=== PATIENT | female | born 2000 | race Caucasian/White ===

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

== ENCOUNTER 2019-05-27 06:25 | Day surgery (SDC) | payer OTHER ==
[~2019-05-27] VITALS: Ht 167.6 cm; Wt 63.0 kg
[~2019-05-27 06:25] MED LIST: CYCL5TAB PO; KETO10TAB PO; LIDOCAINE 1% MDV 20ML VIAL SQ PRN
[2019-05-27] MEDS ORDERED: LR 1,000 ML IV ONE (07:15)
[2019-05-27] MEDS ORDERED: ceFAZolin SOD 1 GM in D5W MINI-BAG PLUS 50 ML IV ONE (08:00)
[2019-05-27] MEDS ORDERED: fentaNYL 100 MCG/2 ML INJECTION (J3010) As Ordered ONE (08:11)
[2019-05-27] MEDS ORDERED: MIDAZOLAM INJ 2MG/2ML VIAL (J2250 PER 1MG) As Ordered ONE (08:11)
[2019-05-27] MEDS ORDERED: propofoL 200 MG/20 ML VIAL As Ordered ONE (08:11)
[2019-05-27] MEDS ORDERED: LIDOCAINE 2% 100MG/5ML SDV (FOR ANES.) As Ordered ONE (08:11)
[2019-05-27] MEDS ORDERED: dexameTHASONE 4 MG/ML 1ML VIAL (J1100 PER 1MG) As Ordered ONE (08:11)
[2019-05-27] MEDS ORDERED: ONDANSETRON 4MG/2ML VIAL (J2405 PER 1MG) As Ordered ONE (08:11)
[2019-05-27] MEDS ORDERED: KETOROLAC 60 MG/2 ML VIAL (J1885 PER 15MG) As Ordered ONE (08:25)
[2019-05-27] MEDS ORDERED: OXYTOCIN INJ 10 UNITS/ML VIAL (J2590) As Ordered ONE (08:27)
[2019-05-27] MEDS ORDERED: METHYLERGONOVINE MALEATE 0.2 MG/ML VIAL (J2210) As Ordered ONE (08:28)
[2019-05-27] MEDS ORDERED: FLUCONAZOLE 200 MG in IV 1 EA IV ONE (08:30)
[2019-05-27] MEDS ORDERED: PHENYLephrine HCL 500 MCG/5 ML (100MCG/ML) SYRINGE (J2370) As Ordered ONE (08:30)
[2019-05-27] MEDS ORDERED: ACETAMINOPHEN 1000MG 100ML IV BTL (OFIRMEV) (J0131 PER 10MG) As Ordered ONE (08:31)
[2019-05-27] MEDS ORDERED: CONJUGATED ESTROGENS 25 MG VIAL (J1410) IV ONE (08:45)
[2019-05-27] MEDS ORDERED: SILVER NITRATE APPLICATOR As Ordered ONE ×2 (08:47→08:50)
--- NOTE | 2019-05-27 09:09 | ROOPDOC ---
[facility] Report Of Operation Report of Operation DATE OF PROCEDURE: 05/27/19 PREPROCEDURE DIAGNOSES: Missed . POSTPROCEDURE DIAGNOSES: Missed . PROCEDURE: Suction Dilation and Currettage. SURGEON: Paige Crouch MD SHEET ROCK APPLICATOR: None ANESTHESIA: SEPTIC TANK SERVICE TECHNICIAN ESTIMATED BLOOD LOSS: Approximately 200 mL. COMPLICATIONS: None. REMARKS: Given Diflucan 200mL IV, Premarin 25mg IV, and Intrauterine mcmahan 30mL. PROCEDURE NOTE: Intrauterine POC appearing. Uterus was AV approximately 8wks with closed cervical os. No adnexal masses. Vagina and introitus with clumpy white discharge. DESCRIPTION OF PROCEDURE: Patient was brought back to the operating room and anesthesia was then induced. Patient was then placed in the dorsal lithotomy position and then examined under anesthesia with the above findings. Patient was then draped and prepped in the usual sterile fashion. Weighted speculum was placed in the posterior portion of the vagina. Right angle speculum was placed on the anterior portion of the vagina to give good exposure to the vagina. Cervix was identified and grasped with a single-tooth tenaculum on the anterior lip. Cervix was then dilated with the Wesley dilator to 16 without difficulty. A rigid curved 8 suction curet was chosen to be used for suction curetting. The vacuum was turned on and checked and found to be in the green zone. The suction curette was then gently placed through the cervical canal and into the uterus where it was gently palpated to the fundus of the uterus. Curetting was performed under suction and products of conception were visualized to go into the suction. Under multiple passes of suction, then the suction was then removed. Bright red "shooting" blood began to poor. Polyp forceps were then used to find further missed larger pieces of the products of conception quickly which there were none. A 30mL mcmahan was placed in the uterus and filled completely to apply pressure within which decreased the bleeding. A total of 100mL was removed through the mcmahan. Premarin 25mg IV was given and the mcmahan remained in place an additional 10minutes. Once the mcmahan was removed there was minimal bleeding. Single-tooth tenaculum was then removed and a sponge stick was placed for pressure. The site was then rechecked and hemostasis was achieved with silver nitrate. Instruments were then removed. Lap, needle, instrument count was correct 2. Patient was in stable condition to the recovery room. Paige Crouch MD May 27, 2019 09:09
[2019-05-27] MEDS ORDERED: oxyCODONE 5MG TAB As Ordered ONE (09:18)
[2019-05-27] MEDS ORDERED: LR 1,000 ML IV SCH ×2 (09:30)
[2019-05-27] MEDS ORDERED: ONDANSETRON 4MG/2ML VIAL (J2405 PER 1MG) IV PRN (09:30)
[2019-05-27] MEDS ORDERED: fentaNYL 100 MCG/2 ML INJECTION (J3010) IV PRN (09:30)
[2019-05-27] MEDS ORDERED: oxyCODONE 5MG TAB PO PRN (09:30)
[2019-05-27 10:58] VITALS: BP 110/65
== END 2019-05-27 10:58 | disposition home or self-care (01) ==
LOC: M SDC 06:25
PROVIDERS: ATTEND Obstetrics & Gynecology
DX: O02.1 Missed abortion (principal)
CPT/HCPCS: 59820; 88305; J0131; J1100; J2250; J2370; J2405; J2590; J3010

== ENCOUNTER → 2020-03-20 | Outpatient (REF) | payer BC ==
[~2020-03-20] MED LIST changes: -LIDOCAINE 1% MDV 20ML VIAL SQ PRN
[2020-03-20 17:50] LABS: HCG, SERUM QUALITATIVE NEGATIVE (NEGATIVE)
[2020-03-20 17:58] LABS: HCG, SERUM QUANTITATIVE < 1.0 MIU/ML
== END ==
LOC: M LAB REF 17:23
PROVIDERS: ATTEND Physician Assistant Medical
DX: Z32.00 Encounter for pregnancy test, result unknown (principal)

== ENCOUNTER 2020-07-20 02:57 | Emergency (ER) | payer BC, OTHER ==
[~2020-07-20] VITALS: Ht 167.6 cm; Wt 62.5 kg
[2020-07-20] MEDS ORDERED: IBUP-1114 PO (03:03)
[2020-07-20 05:13] LABS: APPEARANCE, URINE CLEAR (CLEAR); BACTERIA, URINE AUTO NEGATIVE (NEGATIVE); BILIRUBIN, URINE AUTO NEGATIVE (NEGATIVE); BLOOD, URINE BLOOD NEGATIVE (NEGATIVE); COLOR, URINE STRAW (YELLOW); GLUCOSE, URINE (UA) AUTO NEGATIVE (NEGATIVE); KETONE, URINE AUTO NEGATIVE (NEGATIVE); LEUKOCYTE ESTERASE, URINE AUTO NEGATIVE (NEGATIVE); NITRITE, URINE AUTO NEGATIVE (NEGATIVE); PROTEIN, URINE AUTO NEGATIVE (NEGATIVE); RBC, URINE AUTO 0 /HPF (0-3); SPECIFIC GRAVITY URINE AUTO 1.001 (1.002-1.035); SQUAMOUS EPITHELIAL CELL UR AU 0 /HPF (0-6); UROBILINOGEN, URINE AUTO 0.2 mg/dL (0.0-2.0); WBC, URINE AUTO 0 /HPF (0-3)
--- NOTE | 2020-07-20 08:10 | REPVR ---
PROCEDURE INFORMATION: Exam: XR Lumbosacral Spine Exam date and time: 07/20/2020 6:51 AM Age: 20 years old Clinical indication: Low back pain; Additional info: Low back pain with radiculopathy TECHNIQUE: Imaging protocol: XR of the lumbosacral spine. Views: 4 or 5 views. COMPARISON: CT Spine, lumbar w/o contrast 08/02/2018 12:31 AM FINDINGS: Bones/joints: Vertebral body heights are intact. Alignment is maintained. The pedicles appear intact. No pars defect is identified. No acute fracture is identified. The disc spaces appear grossly unremarkable. Soft tissues: Grossly unremarkable. IMPRESSION: No significant abnormality. Electronically signed by: Landon Martinez On 07/20/2020 08:10:18 AM
[2020-07-20] MEDS ORDERED: MEDR4PAK PO (08:23)
[2020-07-20] MEDS ORDERED: METH-1165 PO (08:23)
[2020-07-20 08:33] VITALS: BP 136/74
== END 2020-07-20 08:35 | disposition home or self-care (01) ==
LOC: M ED 02:57
DX: G89.29 Other chronic pain (principal); M54.5 Low back pain

== ENCOUNTER 2020-09-10 15:31 | Emergency (ER) | payer OTHER ==
[~2020-09-10] VITALS: Ht 167.6 cm; Wt 60.2 kg
[~2020-09-10 15:31] MED LIST changes: +IBUP-1114 PO; +MEDR4PAK PO; +METH-1165 PO
[2020-09-10 15:32] VITALS: BP 115/67
[2020-09-10 18:06] LABS: APPEARANCE, URINE CLEAR (CLEAR); BACTERIA, URINE AUTO NEGATIVE (NEGATIVE); BILIRUBIN, URINE AUTO NEGATIVE (NEGATIVE); BLOOD, URINE BLOOD NEGATIVE (NEGATIVE); COLOR, URINE STRAW (YELLOW); GLUCOSE, URINE (UA) AUTO NEGATIVE (NEGATIVE); KETONE, URINE AUTO NEGATIVE (NEGATIVE); LEUKOCYTE ESTERASE, URINE AUTO NEGATIVE (NEGATIVE); NITRITE, URINE AUTO NEGATIVE (NEGATIVE); PROTEIN, URINE AUTO NEGATIVE (NEGATIVE); RBC, URINE AUTO 1 /HPF (0-3); SPECIFIC GRAVITY URINE AUTO 1.003 (1.002-1.035); SQUAMOUS EPITHELIAL CELL UR AU 2 /HPF (0-6); UROBILINOGEN, URINE AUTO 0.2 mg/dL (0.0-2.0); WBC, URINE AUTO 1 /HPF (0-3)
--- NOTE | 2020-09-10 18:37 | REP ---
INDICATION: pelvic cramping worsening, 7wks preg. COMPARISON: None. TECHNIQUE: Multiple ultrasonographic images of the gravid uterus. FINDINGS: For there is an intrauterine gestational sac with a pole. There is cardiac activity with a heart rate of 118 beats per minute. The pole crown-rump length is 0.5 cm. This corresponds to a gestational age of 6 weeks 2 days with an NATASHA of 05/04/2021. Gestational age by LMP is 7 weeks 4 days with an NATASHA of 04/25/2021. There is a complex collection adjacent to the anterior inferior margin of the gestational sac compatible with a subchorionic hematoma measuring 1.6 x 1.3 x 0.5 cm. Right ovary: The right ovary measures 2.7 x 3.6 x 2.4 cm. There is a right ovarian cyst measuring 1.5 x 2.2 x 1.2 cm, likely a corpus luteum. The left ovary measures 2.6 x 2.4 x 1.5 cm. There is no dominant left ovarian mass or cyst. The ovaries are normal size. There is vascular flow in both ovaries with the Doppler resistive index in the parenchymal arteries of the right ovary measuring 0.53 left ovary 0.52 IMPRESSION: Subchorionic hematoma as described. Right ovarian cyst, likely a corpus luteum. <Electronically signed by Ben Crouch > 09/10/20 [id number]
== END 2020-09-10 19:49 | disposition home or self-care (01) ==
LOC: M ED 15:31
DX: O20.8 Other hemorrhage in early pregnancy (principal); Z3A.01 Less than 8 weeks gestation of pregnancy

== ENCOUNTER 2020-11-01 09:39 | Emergency (ER) | payer OTHER ==
[~2020-11-01] VITALS: Ht 167.6 cm; Wt 59.7 kg
[2020-11-01] MEDS ORDERED: PRENTAB53 PO (09:50)
[2020-11-01] MEDS ORDERED: ONDANSETRON 4MG/2ML VIAL IV ONE (11:40)
[2020-11-01] MEDS ORDERED: MULTIVITAMIN -ADULT INJECTION 10 ML, THIAMINE INJection 100 MG, FOLIC ACID 1 MG in NS 1... IV ONE (11:40)
--- NOTE | 2020-11-01 12:33 | REP ---
INDICATION: llq pain/cramping. COMPARISON: None. TECHNIQUE: Transvesical scanning FINDINGS: Multiple ultrasonographic images of the gravid uterus shows a single living intrauterine gestation in variable positions. Doppler interrogation of the heart shows a heart rate of 145 beats per minute. The placenta is posterior and not low-lying. The cervix measures 3.5 cm in length and is closed. BPD: 3 cm 15 weeks 4 days HC: 11 cm 15 weeks 2 days AC: 8.9 cm 15 weeks 1 day FL: 1.4 cm 14 weeks 2 days The estimated weight is 106 g which is at the 24th percentile for a 15 week 0 day gestational age. Evaluation of the maternal ovaries showed no abnormalities. IMPRESSION: Early OB ultrasound showing a single living intrauterine gestation, as described above, with an estimated gestational age of 15 weeks 0 days via composite criteria and an estimated date of delivery of 04/25/2021 by today's exam. <Electronically signed by Lokesh Ziegler > 11/01/20 [id number]
[2020-11-01 12:40] LABS: BASO % 0.3 % (0.0-1.0); EOS % 0.1 % (0.0-3.0); HEMATOCRIT 40.9 % (36.0-47.0); HEMOGLOBIN 13.9 g/dl (12.0-15.5); LYMPH # 1.4 10^3/uL (1.5-5.0); LYMPH % 18.7 % (24.0-44.0); MEAN CORPUSCULAR HEMOGLOBIN 30.5 pg (27.0-33.0); MEAN CORPUSCULAR VOLUME 89.7 fl (80.0-96.0); MONO # 0.3 10^3/uL (0.0-0.8); MONO % 4.2 % (2.0-8.0); NEUTROPHILS # 5.8 10^3/uL (1.5-8.5); NEUTROPHILS % 76.3 % (36.0-66.0); PLATELET COUNT, AUTOMATED 258 10^3/uL (150-450); RED BLOOD COUNT 4.56 10^6/uL (4.00-5.40); WHITE BLOOD COUNT 7.6 10^3/uL (4.0-10.0)
[2020-11-01 13:10] LABS: ALBUMIN 3.9 GM/DL (3.2-5.2); BILIRUBIN,DIRECT 0.2 MG/DL (0.0-0.2); TOTAL PROTEIN 7.9 GM/DL (6.4-8.2)
[2020-11-01] MEDS ORDERED: ZOFR4TAB16 PO (14:56)
[2020-11-01 15:17] VITALS: BP 125/59
== END 2020-11-01 15:34 | disposition home or self-care (01) ==
LOC: M ED 09:39
DX: O21.0 Mild hyperemesis gravidarum (principal); Z3A.15 15 weeks gestation of pregnancy
CPT/HCPCS: 76815; 80047; 80076; 81001; 83690; 85025; 93976; 96361; 96374; 99284; J2405; J3411

== ENCOUNTER 2021-04-26 02:06 | Inpatient (IN) | payer OTHER ==
[~2021-04-26] VITALS: Ht 167.6 cm; Wt 74.0 kg
[2021-04-26] VITALS (39 sets, daily range): BP systolic 104–132; BP diastolic 60–83
[~2021-04-26 02:06] MED LIST changes: +PRENTAB53 PO; +ZOFR4TAB16 PO
[2021-04-26] MEDS ORDERED: HOME MED LIST COMPLETE! XX SCH (02:45)
[2021-04-26] MEDS ORDERED: OXYTOCIN DRIP 30 UNITS in IV 1 EA IV PRN ×4 (03:35)
[2021-04-26 04:21] LABS: HEMATOCRIT 37.4 % (36.0-47.0); HEMOGLOBIN 11.7 g/dl (12.0-15.5); MEAN CORPUSCULAR HGB CONC 31.3 g/dl (32.0-36.5); MEAN CORPUSCULAR VOLUME 79.9 fl (80.0-96.0); PLATELET COUNT, AUTOMATED 264 10^3/uL (150-450); RED BLOOD COUNT 4.68 10^6/uL (4.00-5.40)
[2021-04-26] MEDS ORDERED: BUTORPHANOL 2 MG/ML INJ (J0595) IV ONE (08:45)
[2021-04-26] MEDS ORDERED: PROMETHAZINE INJ 25 MG/ML VIAL (J2550) IV ONE (08:45)
[2021-04-26] MEDS ORDERED: LR 1,000 ML IV SCH (15:25)
[2021-04-26] MEDS ORDERED: OXYTOCIN DRIP 30 UNITS in IV 1 EA IV SCH (15:25)
[2021-04-26] MEDS: LR 1,000 ML IV SCH ×2 (15:30→19:51)
[2021-04-26] MEDS ORDERED: FENTANYL 2MCG/ML ROPIVACAINE 0.2% IN 0.9% NACL 100ML IVBAG As Ordered ONE (19:12)
[2021-04-26] MEDS ORDERED: LACTATED RINGER'S 1000 ML IV PRN (20:15)
[2021-04-26] MEDS ORDERED: REFRIGERATOR IV KEYS XX PRN (20:15)
[2021-04-26] MEDS ORDERED: ePHEDrine SULFATE 25 MG/5 ML(5MG/ML) SYRINGE IV PRN (20:15)
[2021-04-26] MEDS ORDERED: FENTANYL/ROPIVACAINE/NACL BAG 100 ML EPIDURAL SCH (20:15)
[2021-04-26] MEDS ORDERED: NALOXONE INJ 0.4MG/1ML VIAL (J2310 PER 1MG) IV PRN (20:15)
[2021-04-26] MEDS ORDERED: EPIDURAL COMMENT XX SCH (20:15)
[2021-04-26] MEDS ORDERED: EPIDURAL/PCA KEYS XX PRN (20:15)
[2021-04-26] MEDS ORDERED: diphenhydrAMINE 50MG/ML VIAL (J1200) IV PRN (20:15)
[2021-04-26] MEDS ORDERED: ONDANSETRON 4MG/2ML VIAL IV PRN (20:15)
[2021-04-27] VITALS (15 sets, daily range): BP systolic 95–134; BP diastolic 53–76
[2021-04-27] MEDS ORDERED: OXYTOCIN INJ 10 UNITS/ML VIAL (J2590) As Ordered ONE (01:10)
[2021-04-27] MEDS ORDERED: OXYTOCIN INJ 10 UNITS/ML VIAL (J2590) IV ONE (04:10)
[2021-04-27] MEDS ORDERED: MEASLES,MUMPS,RUBELLA VACCINE INJ (MMR-II) (90707) SC SCH (04:10)
[2021-04-27] MEDS ORDERED: DOCUSATE SODIUM 100MG CAPSULE PO PRN (04:10)
[2021-04-27] MEDS ORDERED: RHOGAM 300 MCG (1500 IU) INJ (J2790) IM SCH (04:10)
[2021-04-27] MEDS ORDERED: MOM 30ML SUSPENSION UDC PO PRN (04:10)
[2021-04-27] MEDS ORDERED: METHYLERGONOVINE MALEATE 0.2 MG/ML VIAL (J2210) IM PRN (04:10)
[2021-04-27] MEDS ORDERED: METHYLERGONOVINE MALEATE 0.2 MG TAB PO PRN (04:10)
[2021-04-27] MEDS ORDERED: OXYTOCIN DRIP 30 UNITS in IV 1 EA IV ONE (04:10)
[2021-04-27] MEDS ORDERED: LR 1,000 ML IV SCH (04:10)
[2021-04-27] MEDS ORDERED: OXYTOCIN DRIP 30 UNITS in IV 1 EA IV SCH (04:10)
[2021-04-27] MEDS ORDERED: ACETAMINOPHEN 500 MG TAB PO PRN (04:10)
[2021-04-27] MEDS ORDERED: ANUSOL HC CREAM 30GM TOP PRN (04:10)
[2021-04-27] MEDS ORDERED: ACETAMINOPHEN TAB 650MG DOSE (2X325MG) PO PRN (04:10)
[2021-04-27] MEDS ORDERED: DIBUCAINE 1% OINTMENT 30GM TOP PRN (04:10)
[2021-04-27 04:20] LABS: CORD GAS ABE V -6.7; CORD GAS HCO3 V 17.9 MEQ/L; CORD GAS O2 SAT V 83.1 %; CORD GAS PCO2 V 33.7 mmHg; CORD GAS PH V 7.343 UNITS; CORD GAS PO2 V 34.4 mmHg; CORD GAS SBC V 18.7 MEQ/L; CORD GAS TCO2 V 18.9 MEQ/L
[2021-04-27 04:23] LABS: CORD GAS ABE A -7.2; CORD GAS HCO3 A 20.6 MEQ/L; CORD GAS O2 SAT A 60.4 %; CORD GAS PCO2 A 50.7 mmHg; CORD GAS PH A 7.227 UNITS; CORD GAS PO2 A 22.5 mmHg; CORD GAS SBC A 17.9 MEQ/L; CORD GAS TCO2 A 22.2 MEQ/L
[2021-04-27] MEDS: IBUPROFEN 600MG TAB PO PRN ×2 (05:08→20:00)
[2021-04-27] MEDS: PRENATAL VITAMINS CHEWABLE TABLET PO SCH (08:14)
[2021-04-27] MEDS ORDERED: INFLUENZA QUADRIVALENT PF VACCINE 0.5ML SYRINGE IM ONE (09:00)
[2021-04-28 06:07] VITALS: BP 122/82
[2021-04-28 06:58] LABS: HEMATOCRIT 34.2 % (36.0-47.0); HEMOGLOBIN 10.6 g/dl (12.0-15.5); MEAN CORPUSCULAR HEMOGLOBIN 24.7 pg (27.0-33.0); MEAN CORPUSCULAR VOLUME 79.7 fl (80.0-96.0); PLATELET COUNT, AUTOMATED 240 10^3/uL (150-450); RED BLOOD COUNT 4.29 10^6/uL (4.00-5.40); WHITE BLOOD COUNT 11.8 10^3/uL (4.0-10.0)
[2021-04-28] MEDS: PRENATAL VITAMINS CHEWABLE TABLET PO SCH (08:05)
[2021-04-28 11:00] VITALS: BP 117/74
[2021-04-28 17:52] VITALS: BP 128/69
[2021-04-29 06:00] VITALS: BP 110/55
[2021-04-29] MEDS ORDERED: IBUP-1022 PO (07:06)
[2021-04-29] MEDS ORDERED: ACET-683 PO (07:06)
[2021-04-29] MEDS ORDERED: COLA100C5 PO (07:06)
[2021-04-29] MEDS: PRENATAL VITAMINS CHEWABLE TABLET PO SCH (08:37)
== END 2021-04-29 12:07 | disposition home or self-care (01) | DRG 807 ==
LOC: M LDO 02:06 → M LDI 03:25 → M OBS 04-27 05:59
PROVIDERS: ADMIT Obstetrics & Gynecology; ATTEND Obstetrics & Gynecology
PROC: 10E0XZZ Delivery of Products of Conception, External Approach (ICD-10-PCS; principal; 2021-04-27)
DX: O80 Encounter for full-term uncomplicated delivery (principal); Z37.0 Single live birth; Z3A.40 40 weeks gestation of pregnancy